=== PATIENT | male | born 1950 | race Caucasian/White ===

== ENCOUNTER 2016-10-21 10:34 | Observation (INO) | payer OTHER, MEDICARE ==
[2016-10-21 10:39] VITALS: RESP 16
--- NOTE | 2016-10-21 10:57 | CPEKG ---
Heart Rate: 60 RR Interval: 1000 P-R Interval: 160 QRSD Interval: 112 QT Interval: 412 QTC Interval: 412 P [place]: -1 QRS [place]: -41 T Wave [place]: 148 EKG Severity - ABNORMAL ECG - EKG Impression: SINUS RHYTHM EKG Impression: VENTRICULAR PREMATURE COMPLEX EKG Impression: NONSPECIFIC IVCD WITH LAD EKG Impression: PROBABLE POSTERIOR INFARCT Electronically Signed By: Aniceto Olivares 21-Oct-2016 11:24:21
--- NOTE | 2016-10-21 11:23 | EDPHY ---
H & P Stated Complaint: CP on and off for 1 month. Told to come in by Cards. Time Seen by Provider: 10/21/16 11:02 HPI/ROS: CHIEF COMPLAINT: Chest pain HISTORY OF PRESENT ILLNESS: The patient is a 66-year-old man who comes to the emergency department complaining of chest pain. He has had intermittent chest pain since July. At that time he had [address] Mcallister. He is daily angina that is improved significantly with Ranexa. He also has history of reflux disease and is seen by Dr. Ybarra. 5 days ago the Ranexa who was discontinued and he was started on ibuprofen a thought that maybe his chronic intermittent chest pain was for musculoskeletal. This seemed to worsen his symptoms significantly and he switched back to Ranexa yesterday. He also tried taking several doses of Gaviscon this morning without significant relief. For last 2 nights he has had severe chest pain around 3:00 a.m. that woke him from sleep. Yesterday it resolved but this morning it did not until he arrived here. No nausea vomiting. No diaphoresis. No shortness of breath. He did take his Plavix this morning and is complaining to take it again today at noon. REVIEW OF SYSTEMS: Constitutional: denies: chills, fever, recent illness, recent injury EENTM: denies: blurred vision, double vision, nose congestion Respiratory: denies: cough, shortness of breath Cardiac: See HPI Gastrointestinal/Abdominal: denies: abdominal pain, diarrhea, nausea, vomiting, blood streaked stools Genitourinary: denies: dysuria, frequency, hematuria, pain Musculoskeletal: denies: joint pain, muscle pain Skin: denies: lesions, rash, jaundice, bruising Neurological: denies: headache, numbness, paresthesia, tingling, dizziness, weakness Hematologic/Lymphatic: denies: blood clots, easy bleeding, easy bruising Immunologic/allergic: denies: HIV/AIDS, transplant EXAM: GENERAL: Well-appearing, well-nourished and in no acute distress. HEAD: Atraumatic, normocephalic. EYES: Pupils equal round and reactive to light, extraocular movements intact, sclera anicteric, conjunctiva are normal. ENT: TMs normal, nares patent, oropharynx clear without exudates. Moist mucous membranes. NECK: Normal range of motion, supple without lymphadenopathy or JVD. LUNGS: Breath sounds clear to auscultation bilaterally and equal. No wheezes rales or rhonchi. HEART: Regular rate and rhythm without murmurs, rubs or gallops. ABDOMEN: Soft, nontender, normoactive bowel sounds. No guarding, no rebound. No masses appreciated. BACK: No CVA tenderness, no spinal tenderness, step-offs or deformities EXTREMITIES: Normal range of motion, no pitting or edema. No clubbing or cyanosis. NEUROLOGICAL: Cranial nerves II through XII grossly intact. Normal speech, normal gait. 5/5 strength, normal movement in all extremities, normal sensation PSYCH: Normal mood, normal affect. SKIN: Warm, dry, normal turgor, no visible rashes or lesions. Source: Patient Exam Limitations: No limitations - Personal History Current Tetanus Diphtheria and Acellular Pertussis (TDAP): Yes Tetanus Vaccine Date: 2 years ago - Medical/Surgical History Hx Asthma: No Hx Chronic Respiratory Disease: No Hx Diabetes: No Hx Cardiac Disease: Yes Hx Renal Disease: No Hx Cirrhosis: No Hx Alcoholism: No Hx HIV/AIDS: No Hx Splenectomy or Spleen Trauma: No Other PMH: HTN, gout, Stents in heart. - Family History Significant Family History: Hypertension - Social History Smoking Status: Former smoker Alcohol Use: None Drug Use: None Constitutional: Initial Vital Signs Temperature (C) 36.6 C 10/21/16 10:35 Heart Rate 68 10/21/16 10:35 Respiratory Rate 16 10/21/16 10:35 Blood Pressure 144/85 H 10/21/16 10:35 O2 Sat (%) 93 10/21/16 10:35 O2 Delivery Mode Room Air Allergies/Adverse Reactions: amoxicillin trihydrate [From Augmentin] Allergy (Intermediate, Verified 17:12) cephalexin [Cephalexin] Allergy (Intermediate, Verified 08/12/16 17:12) clarithromycin [From Biaxin] Allergy (Intermediate, Verified 08/12/16 17:12) potassium clavulanate [From Augmentin] Allergy (Intermediate, Verified 08/12/16 17:12) Sulfa (Sulfonamide Antibiotics) Allergy (Intermediate, Verified 08/12/16 17:12) Hives lactose Allergy (Verified 08/12/16 17:12) Home Medications: Medication Instructions Recorded Allopurinol [Allopurinol 100 MG 100 mg PO DAILY 01/12/14 (*)] Aspirin EC [Aspirin EC 81 mg (*)] 81 mg PO DAILY 01/12/14 Cyanocobalamin [Vitamin B12 (*)] 1,000 mcg PO DAILY 01/12/14 Pantoprazole Sodium [Protonix 40mg 40 mg PO BID 01/12/14 (*)] Ramipril [Altace 5mg (*)] 5 mg PO HS 01/12/14 Clopidogrel Bisulfate [Plavix (*)] 75 mg PO DAILY@1200 10/21/16 Metoprolol Succinate Xr [Toprol Xl 25 mg PO HS 10/21/16 25 mg (*)] Ranolazine [Ranexa] 500 mg PO 10/21/16 Rosuvastatin Calcium [Crestor] 10 mg PO HS 10/21/16 Medical Decision Making - Diagnostics EKG Interpretation: An EKG obtained and was read and documented in trace view. Please see trace view for full reading and report. Sinus rhythm, PVC, nonspecific QRS widening , unchanged from previous ED Course/Re-evaluation: 12:25 p.m. I discussed the case with Dr.Hollands MOR Toro who agreed with admission to the hospital service. 12:30 p.m. I discussed the case with Liliana who accepted for Dr NAYAN Ferris. I spoke with patient who agrees with this plan. Currently he is asymptomatic. Differential Diagnosis: Partial list of the Differential diagnosis considered include but were not limited to; angina, musculoskeletal pain, and although unlikely based on the history and physical exam, I also considered PE, dissection, pneumonia. I discussed these differential diagnoses and the plan with the patient as well as the usual and expected course. The patient understands that the diagnosis is provisional and that in medicine we are not always correct and that further workup is often warranted. Usual and customary warnings were given. All of the patient's questions were answered. The patient was instructed to return to the emergency department should the symptoms at all worsen or return, otherwise to followup with the physician as we discussed. - Data Points Laboratory Results: Laboratory Results 10/21/16 11:01 10/21/16 11:01 Medications Given: Discontinued Medications Allopurinol (Allopurinol) 100 mg PO DAILY [facility] Stop: 04/20/17 08:59 Last Admin: 10/22/16 13:48 Dose: 100 mg Aspirin Buffered (Aspirin Ec) 81 mg PO DAILY [facility] Stop: 04/20/17 08:59 Last Admin: 10/22/16 07:29 Dose: Not Given Aspirin Buffered (Aspirin Ec) 325 mg PO ONCALL ONE Stop: 10/22/16 06:01 Last Admin: 10/22/16 07:19 Dose: 325 mg Clopidogrel Bisulfate (Plavix) 75 mg PO DAILY@1200 [facility] Stop: 04/20/17 11:59 Last Admin: 10/22/16 13:48 Dose: 75 mg Diazepam (Valium) 5 mg PO ONCALL ONE Stop: 10/22/16 06:01 Last Admin: 10/22/16 07:19 Dose: 5 mg Diphenhydramine HCl (Benadryl) 25 mg PO ONCALL ONE Stop: 10/22/16 06:01 Last Admin: 10/22/16 07:19 Dose: 25 mg Famotidine (Pepcid) 20 mg PO ONCE ONE Stop: 10/22/16 08:01 Last Admin: 10/22/16 13:49 Dose: Not Given Metoprolol Succinate (Toprol Xl) 25 mg PO [facility] Stop: 04/19/17 20:59 Last Admin: 10/21/16 20:37 Dose: 25 mg Pantoprazole Sodium (Protonix) 40 mg PO BID [facility] Stop: 04/19/17 20:59 Last Admin: 10/22/16 07:30 Dose: Not Given Ramipril (Altace) 5 mg PO [facility] Stop: 04/19/17 20:59 Last Admin: 10/21/16 20:36 Dose: 5 mg Ranolazine (Ranexa) 500 mg PO 08,20 [facility] Stop: 04/19/17 19:59 Last Admin: 10/22/16 07:27 Dose: Not Given Rosuvastatin Calcium (Crestor) 10 mg PO HS [facility] Stop: 04/19/17 20:59 Last Admin: 10/21/16 20:36 Dose: 10 mg Vitamin B Complex (Vitamin B12) 1,000 mcg PO DAILY [facility] Stop: 04/20/17 08:59 Last Admin: 10/22/16 07:29 Dose: Not Given Departure - Departure Disposition: [facility] Acute Clinical Impression: Acute chest pain Condition: Good
[2016-10-21 11:24] LABS: % IMMATURE GRANULYOCYTES 0.2 % (0.0-1.1); ABSOLUTE IMMATURE GRANULOCYTES 0.01 10^3/uL (0.00-0.10); ADD DIFF? NO; ADD MORPH? NO; ADD SCAN? NO; ATYPICAL LYMPHOCYTE FLAG 10 (0-99); FRAGMENT RBC FLAG 0 (0-99); HEMATOCRIT 38.7 % (40.0-51.0); HEMOGLOBIN 13.2 g/dL (13.7-17.5); LEFT SHIFT FLG 0 (0-99); LIPEMIA HEMOLYSIS FLAG 90 (0-99); MEAN CELL HEMOGLOBIN 31.1 pg (27.9-34.1); MEAN CELL HEMOGLOBIN CONCENTR. 34.1 g/dL (32.4-36.7); MEAN CELL VOLUME 91.3 fL (81.5-99.8); MEAN PLATELET VOLUME 11.6 fL (8.7-11.7); PLATELET CLUMPS FLAG 0 (0-99); PLATELET COUNT 177 10^3/uL (150-400); RED BLOOD CELL COUNT 4.24 10^6/uL (4.40-6.38); RED CELL DISTRIBUTION WIDTH 12.8 % (11.5-15.2)
[2016-10-21 11:34] LABS: APTT 24.7 SEC (23.0-38.0); INR 1.13 (0.83-1.16); PROTIME(PATIENT) 14.4 SEC (12.0-15.0)
[2016-10-21 11:36] LABS: ANION GAP 11 mEq/L (8-16); CARBON DIOXIDE 25 mEq/l (22-31); CHLORIDE 107 mEq/L (97-110); GLOMERULAR FILTRATION RATE > 60; GLUCOSE 130 mg/dL (70-100); POTASSIUM 3.9 mEq/L (3.5-5.2); SODIUM 143 mEq/L (134-144)
--- NOTE | 2016-10-21 11:41 | DX ---
Chest, PA and Lateral History: Chest pain, history of 2 coronary stents Comparison: January 11, 2014 Findings: Lung findings are again mildly prominent. Lungs are clear, without infiltrate or consolidat ion. Heart size and pulmonary vascularity are normal. There is no adenopathy or mass lesion. There is no pleural effusion or pneumothorax. There is stable mild compressions of T7 and T8 associated with a prominent thoracic kyphosis. No new compressions have developed.. EKG leads overlie the chest. Impression: COPD. Nothing acute identified.
[2016-10-21 11:42] LABS: TROPONIN I < 0.012 ng/mL (0-0.034)
[2016-10-21] MEDS ORDERED: ONDANSETRON DISINTEGRATING 4 MG TAB PO PRN (12:42)
[2016-10-21] MEDS ORDERED: ACETAMINOPHEN 325 MG TAB PO PRN (12:42)
[2016-10-21] MEDS ORDERED: ONDANSETRON 4 MG/2 ML VIAL IVP PRN (12:42)
[2016-10-21 14:24] VITALS: TEMP 97.5
--- NOTE | 2016-10-21 14:55 | GHP ---
[f rep st] HISTORY AND PHYSICAL DATE OF ADMISSION: 10/21/2016 CHIEF COMPLAINT: Chest pain. HISTORY OF PRESENT ILLNESS: This is a 66-year-old male with history of coronary artery disease with recent stents placed in July [address] Mcallister, who reports having intermittent essentially chronic chest pain since his last procedure. The patient was seen in the clinic and started on Ranexa approximately a month ago, and the patient continues to have intermittent chest pain symptoms. Reports for the last 2 mornings prior to presentation, he has woken up both days at 3:50 in the morning with severe substernal chest pain and pressure that radiates up into the upper part of his chest. The intensity became so bad today he presented to the emergency department. He has been seen several times in the clinic with recommendations for various medication changes. Approximately a week ago he was told to stop the Ranexa and start some ibuprofen. When the chest pain recurred, he did restart the Ranexa and said he believes he had some pain improvement with it. The patient has been attending cardiac rehab for the last 12 weeks, without complication. He does report that he had some chest pain on his elliptical machine in the last 48 hours. Otherwise, no clear exertional or pleuritic symptoms. The patient denies any dyspnea at rest or with exertion. Denies lower extremity edema. Does report chronic reflux which he, at this point in time, is having a difficult time from his intermittent chest pain. Reports predictable reflux symptoms after taking his Plavix daily. It seems to be alleviated by taking food. Reports that he has a persistent dry cough in the evening time after he takes his ramipril, typically only 2 or 3 coughs, and then no recurrence during the day. It is not affecting his lifestyle. The patient denies any diarrhea. Has had some constipation with the Ranexa as well as some headaches, that seemed to have resolved weeks into initiating that medication. Denies any dysuria or hematuria. PAST MEDICAL HISTORY: 1. Coronary artery disease, most recently with stents placed on August 09, 2016. 2. History of a nonischemic cardiomyopathy. 3. History of nonsustained ventricular tachycardia with a negative EP study. 4. Hyperlipidemia, on statin therapy. 5. Hypertension. 6. Baseline bradycardia exacerbated by beta nicho use. 7. WAYNE. Uses evening CPAP. SOCIAL HISTORY: Negative for tobacco. Very rare alcohol. No illicit drugs or marijuana. FAMILY HISTORY: Father of lung cancer. He was a smoker. ADVANCED DIRECTIVES: The patient is full cor, full tube. His would be his medical decision maker. REVIEW OF SYSTEMS: A 10-point review of systems is negative, with the exception of that reported in the HPI. PHYSICAL EXAMINATION: VITAL SIGNS: Blood pressure 144/85, heart rate 68, respiratory rate 16, 93% on room air, 36.6. GENERAL: This is a very healthy- appearing middle-aged male in no acute distress. HEENT: Notable for moist mucous membranes. Eye exam is negative for any icterus. CARDIAC: The patient is regular rate and rhythm. PULMONARY: Good respiratory effort. Clear to auscultation bilaterally. GASTROINTESTINAL: Positive bowel sounds. The abdomen is soft, nontender to palpation. MUSCULOSKELETAL: Negative for any lower extremity edema. SKIN: Negative for any rashes. NEUROLOGIC: He is alert and oriented x3. PSYCHIATRIC: He is pleasant and cooperative on interview and examination. DATA: White count 4.4, hematocrit 38.7 which is near recent baseline, platelets of 177. INR of 1.13. Creatinine of 1.0, glucose of 130. Troponin less than 0.012. Chest x-ray, which I personally reviewed and interpreted, shows no acute infiltrates or edema. EKG shows sinus rhythm, leftward axis deviation, nonspecific ST-T flattening in V3 with ST depression in V4, V5 and V6. Compared to old, the ST depressions in the far lateral leads are more pronounced. ASSESSMENT AND PLAN: This is a 66-year-old male presenting with chest pain. 1. Acute chest pain. The patient is certainly very high risk with known baseline coronary artery disease and recent stenting. Initial troponin is negative. EKG is not normal. The patient will be admitted for telemetry, serial troponins and EKGs, and Dr. Mcallister will consult. I expect the patient will be taken back to the cardiac catheterization lab either this evening or in the morning. Will keep the patient n.p.o. in preparation. 2. Coronary artery disease. Will continue the patient's medications, which include Plavix, beta nicho, REINA inhibitor and a statin. 3. Nonischemic cardiomyopathy. The patient does not appear to be in decompensated heart failure. 4. Gastroesophageal reflux disease. The patient has persistent symptoms. Will continue his outpatient twice daily pantoprazole. 5. Prophylaxis. Will hold on Lovenox as the patient is likely going to the laborer drying department this evening. DIET: N.p.o. in preparation for the lab. DISPOSITION: I expect less than 2 midnights in a patient if the cardiac catheterization is normal. I have discussed the case with Cardiology. They will evaluate the patient and make a decision on when to go to the cardiac laborer drying department. /[id number]/MODL MTDD
[2016-10-21] MEDS: RANOLAZINE 500 MG TAB.ER PO SCH (20:37)
[2016-10-21] MEDS ORDERED: METOPROLOL SUCCINATE XR 25 MG TAB PO SCH (21:00)
[2016-10-21] MEDS ORDERED: RAMIPRIL 5 MG CAP PO SCH (21:00)
[2016-10-21] MEDS ORDERED: ROSUVASTATIN CALCIUM 10 MG TAB PO SCH (21:00)
[2016-10-21] MEDS: PANTOPRAZOLE SODIUM 40 MG TAB PO SCH (21:20)
--- NOTE | 2016-10-21 21:34 | SOAPPROG ---
[facility] Progress Note Assessment/Plan: Assessment: Plan: cath in am 10/21/16 21:33 Objective: Vital Signs Temp Pulse Resp BP Pulse Ox 97.5 F 64 16 128/91 H 92 10/21/16 14:23 10/21/16 20:37 10/21/16 14:23 10/21/16 20:37 10/21/16 14:23 PT 14.4 SEC (12.0-15.0) 10/21/16 11:01 INR 1.13 (0.83-1.16) 10/21/16 11:01 ICD10 Worksheet Patient Problems: Problems Problem Status Diagnosed Acute chest pain Acute
[2016-10-21] MEDS ORDERED: TEMAZEPAM 15 MG CAP PO PRN (21:38)
[2016-10-22 05:52] LABS: ADD DIFF? NO; ADD MORPH? NO; ADD SCAN? NO; ATYPICAL LYMPHOCYTE FLAG 20 (0-99); FRAGMENT RBC FLAG 0 (0-99); HEMATOCRIT 37.9 % (40.0-51.0); HEMOGLOBIN 12.7 g/dL (13.7-17.5); LEFT SHIFT FLG 0 (0-99); LIPEMIA HEMOLYSIS FLAG 80 (0-99); MEAN CELL HEMOGLOBIN 31.1 pg (27.9-34.1); MEAN CELL HEMOGLOBIN CONCENTR. 33.5 g/dL (32.4-36.7); MEAN CELL VOLUME 92.9 fL (81.5-99.8); MEAN PLATELET VOLUME 11.3 fL (8.7-11.7); PLATELET CLUMPS FLAG 0 (0-99); PLATELET COUNT 157 10^3/uL (150-400); RED BLOOD CELL COUNT 4.08 10^6/uL (4.40-6.38); RED CELL DISTRIBUTION WIDTH 12.8 % (11.5-15.2)
[2016-10-22] MEDS ORDERED: diphenhydrAMINE 25 MG CAP PO ONE (06:00)
[2016-10-22] MEDS ORDERED: ASPIRIN EC 325 MG TAB PO ONE (06:00)
[2016-10-22] MEDS ORDERED: DIAZEPAM 5 MG TAB PO ONE (06:00)
[2016-10-22 06:25] LABS: APTT 26.3 SEC (23.0-38.0); INR 1.17 (0.83-1.16); PROTIME(PATIENT) 14.9 SEC (12.0-15.0)
[2016-10-22 06:26] LABS: ANION GAP 10 mEq/L (8-16); CALCIUM 8.6 mg/dL (8.5-10.4); CARBON DIOXIDE 26 mEq/l (22-31); CHLORIDE 107 mEq/L (97-110); CHOLESTEROL 104 mg/dL (140-220); CHOLESTEROL/HDL RATIO 3.15 RATIO (1.00-4.97); CREATININE 0.9 mg/dL (0.7-1.3); GLOMERULAR FILTRATION RATE > 60; GLUCOSE 88 mg/dL (70-100); HIGH DENSITY LIPOPROTEIN 33 mg/dL (40-65); LDL/HDL RATIO 1.67 RATIO (1.00-3.64); LOW DENSITY LIPOPROTEIN 55 mg/dL (80-100); NON-HIGH DENSITY LIPOPROTEIN 71 mg/dL (90-129); POTASSIUM 4.4 mEq/L (3.5-5.2); SODIUM 143 mEq/L (134-144); TRIGLYCERIDE 82 mg/dL (40-150); VERY LOW DENSITY LIPOPROTEINS 16 mg/dL (8-25)
[2016-10-22 06:30] LABS: TROPONIN I < 0.012 ng/mL (0-0.034)
[2016-10-22] MEDS: RANOLAZINE 500 MG TAB.ER PO SCH (07:27)
[2016-10-22] MEDS: ALLOPURINOL 100 MG TAB PO SCH ×2 (07:28→13:48)
[2016-10-22] MEDS ORDERED: FAMOTIDINE 20 MG TAB ONE (07:30)
[2016-10-22] MEDS: PANTOPRAZOLE SODIUM 40 MG TAB PO SCH (07:30)
[2016-10-22] MEDS ORDERED: FAMOTIDINE 20 MG TAB PO ONE (08:00)
[2016-10-22] MEDS ORDERED: LIDOCAINE 1% 30 ML SDV ONE (08:00)
[2016-10-22] MEDS ORDERED: MIDAZOLAM 2 MG/2 ML VIAL ONE ×2 (08:01→09:23)
[2016-10-22] MEDS ORDERED: fentaNYL 100 MCG/2 ML INJ ONE (08:01)
[2016-10-22] MEDS ORDERED: HEPARIN 10,000 UNIT/10 ML MDV ONE (08:01)
[2016-10-22] MEDS ORDERED: VERAPAMIL 5 MG/2 ML VIAL ONE ×2 (08:01→09:23)
[2016-10-22] MEDS ORDERED: IOPAMIDOL (ISOVUE-370) 150 ML BTL IV ONE (08:02)
--- NOTE | 2016-10-22 08:43 | SUROPNOTE ---
[facility] Operative Report - Surgery Date of Procedure: 10/22/16 Indication: This patient is a 66 year old man, with known coronary disease status-post proximal and mid LAD stenting 08/09/16, presenting with intermittent episodes of chest pain, which has been occurring since stenting in July 2016. He started a Ranexa regimen approximately one month ago, with little alleviation. He also tried ibuprofen unsuccessfully. In the last 2-3 days , this pain has become particularly severe; localized substernally and radiating to the upper part of his chest, occurring at rest and waking him from sleep. He had a very severe episode yesterday morning, which precipitated him presenting to the emergency department for medical attention. He was subsequently admitted for evaluation. Serial troponins have been negative, however the patient continues to experience resting chest pain. Left heart catheterization is indicated secondary to atypical class IV chest pain and [place] Cardiovascular class III angina despite medical therapy. Procedures performed: 1. Left heart catheterization with left ventricular and selective coronary angiography. Description of procedure: Description, risks, benefits and alternatives were discussed in detail. Informed consent was obtained. The patient was brought to the catheterization laboratory where a timeout was performed. The patient's standard Obdulio's test was abnormal, however after prolonged compression of the radial artery, ulnar pulse was ultimately palpable and was present by Doppler. Therefore, I felt it was safe to utilize radial access. The right wrist was sterilely prepped and draped. 2% lidocaine utilized for local anesthetic. A 5-Telugu hemostatic sheath placed right radial artery utilizing micropuncture technique. Diagnostic coronary angiography performed with 5-Telugu, Cm left-3.5 and Cm right -4 catheter. All catheters were passed over a 0.035 guidewire and J Glidewire. Pigtail catheter was then utilized for left heart catheterization and left ventricular angiography. Arterial sheath was removed and TR band was placed. Findings: 1. Hemodynamics: Aortic pressure 109/62, mean of 82, left ventricular pressure 114/4/9 end-diastolic. There was no pull back gradient across the aortic valve. 2. Left ventricle: The left ventricle appears normal in size. Left ventricle is normal shape. There is global hypokinesis with an ejection fraction of 35%. There are no filling defects or significant mitral regurgitation. The aortic root and ascending aorta appears normal, there is no dissection or aneurysm formation. 3. Coronary angiography: Left main: The left main is large, trifurcating vessel with very minimal disease. 4. Left anterior descending: This is a large vessel with proximal ectasia. Previously placed proximal and mid stents are widely patent. 5. Circumflex: The circumflex gives rise to a large high-lateral branch, moderate first obtuse marginal branch, and a large posterolateral branch. There is diffuse atherosclerotic disease without no stenosis greater than 40%. 6. Ramus intermedius: This is a large vessel covering the diagonal territory with diffuse irregularities and no stenosis greater than 20%. 6. Right coronary: Large dominant vessel with fairly severe proximal ectasia and dye streaming. Gives rise to a small PDA and moderate posterolateral branch. Diffuse nonobstructive atherosclerosis. Overall Impression: 1. Diffuse atherosclerotic coronary artery disease, with rather severe ectatic changes particularly in the proximal right coronary artery, without significant progression from previous catheterization 07/2016. Proximal and mid LAD stents are widely patent. 2. Reduced left ventricular systolic function with EF of 35%. 3. Non-ischemic cardiomyopathy. Plan: 1. Full inflammatory workup, including JOSY and vasculitis workup. 2. Continue dual anti-platelet therapy. 3. Aggressive risk modification and high dose statin therapy. 4. Continue Ranexa. 5. MUGA scan. 6. Close clinical follow up. Portions of this report were documented by a medical videographer. I have reviewed this report and agree with the documentation. Report scribed for Dr. Deep Mcallister. Report scribed by Rosana Wolf.
[2016-10-22] MEDS ORDERED: ASPIRIN EC 81 MG TAB PO SCH (09:00)
[2016-10-22] MEDS ORDERED: CYANO/VITAMIN B12 1000 MCG TAB PO SCH (09:00)
[2016-10-22] MEDS ORDERED: NITROGLYCERIN 1,500 MCG/15 ML VIAL MISC ONE (09:23)
[2016-10-22] MEDS ORDERED: HYDROCODONE/APAP 5/325 TAB PO PRN (10:00)
[2016-10-22] MEDS ORDERED: ATROPINE SULFATE 1 MG/10 ML SYR IVP PRN (10:00)
[2016-10-22] MEDS ORDERED: OXYCODONE/APAP 5/325 TAB PO PRN (10:00)
[2016-10-22] MEDS ORDERED: ONDANSETRON 4 MG/2 ML VIAL IVP PRN (10:00)
[2016-10-22] MEDS ORDERED: NITROGLYCERIN 0.4 MG BTL SL PRN (10:00)
[2016-10-22] MEDS ORDERED: CLOPIDOGREL BISULFATE 75 MG TAB PO SCH (12:00)
[2016-10-22 13:46] VITALS: BP 90/56; PULSE 60; O2SAT 97
--- NOTE | 2016-10-22 17:31 | GDS ---
[f rep st] DISCHARGE SUMMARY DISCHARGE DIAGNOSES: 1. Chest pain, resolved. 2. Coronary artery disease, status post stenting in July 2016. 3. Nonischemic cardiomyopathy. 4. Nonsustained ventricular tachycardia with a negative electrophysiologic study. 5. Hyperlipidemia. 6. Hypertension. CONSULTANTS: Deep Mcallister MD, cardiology. PROCEDURES PERFORMED: Left heart catheterization performed on October 22, 2016, by Dr. Deep Hernandez nd, revealed diffuse coronary artery disease with a rather severe changes in the proximal right coron [place], though no significant progression from his previous catheterization in July 2016. His proxi mal and mid LAD stents were widely patent. His ejection fraction was noted to be 35%. HISTORY: For details, please see dictated history and physical by Dr. Sepideh Ferris dated 10/21/2016 . In brief, the patient is a 66-year-old male with a history of known coronary disease and prior lia nts. He is followed by Dr. Mcallister in the outpatient setting. [facility] and is admitted for further evaluation. HOSPITAL COURSE: The patient was in the observation unit. Initial troponin was negative, though he did have an abnormal EKG. He was made n.p.o., and taken to the geophysical laboratory chief the following morning. Resu lts are discussed above. No further interventions were performed, given his widely patent stents. Jj colón is continued on dual antiplatelet therapy, along with statin and Ranexa. PLAN: Is to follow up with Dr. Mcallister for an outpatient MUGA scan for more specific information abo ut the ejection fraction. He will discuss Dr. Mcallister changing from Ranexa to possible nitrate thera py, as he does not feel the Ranexa is beneficial. DISPOSITION: Patient is discharged home in stable condition. FOLLOWUP: Follow up with Dr. Mcallister in the outpatient clinic within the next week. DISCHARGE MEDICATIONS: Please see [employer] for complete updated outpatient medication list. There a re no new medications on discharge. /[id number]/MODL
== END 2016-10-22 17:20 | disposition home or self-care (01) ==
LOC: F1N 14:11
PROVIDERS: ADMIT Hospitalist; ATTEND Hospitalist
PROC: 4A023N7 Measurement of Cardiac Sampling and Pressure, Left Heart, Percutaneous Approach (ICD-10-PCS; principal; 2016-10-21)
PROC: B2151ZZ Fluoroscopy of Left Heart using Low Osmolar Contrast (ICD-10-PCS; 2016-10-21)
PROC: B2111ZZ Fluoroscopy of Multiple Coronary Arteries using Low Osmolar Contrast (ICD-10-PCS; 2016-10-21)
DX: R07.9 Chest pain, unspecified (principal); I25.10 Atherosclerotic heart disease of native coronary artery without angina pectoris; Z95.5 Presence of coronary angioplasty implant and graft; I42.9 Cardiomyopathy, unspecified; I47.2 Ventricular tachycardia; E78.4 Other hyperlipidemia; I10 Essential (primary) hypertension; K21.9 Gastro-esophageal reflux disease without esophagitis; R42 Dizziness and giddiness; G47.33 Obstructive sleep apnea (adult) (pediatric); R00.1 Bradycardia, unspecified; J44.9 Chronic obstructive pulmonary disease, unspecified; Z87.891 Personal history of nicotine dependence
CPT/HCPCS: 71020; 93005; 93458; 99285; C1769; G0378; J1644; J2250; J3010; Q9967

== ENCOUNTER 2016-12-26 20:17 | Inpatient (IN) | payer OTHER, MEDICARE ==
--- NOTE | 2016-12-26 20:40 | CPEKG ---
Heart Rate: 55 RR Interval: 1091 P-R Interval: 156 QRSD Interval: 118 QT Interval: 472 QTC Interval: [address]: [address]: [address]: 117 EKG Severity - ABNORMAL ECG - EKG Impression: SINUS RHYTHM EKG Impression: INCOMPLETE RIGHT BUNDLE BRANCH BLOCK EKG Impression: LVH WITH SECONDARY REPOLARIZATION ABNORMALITY EKG Impression: Similar to previous Electronically Signed By: Aniceto Olivares 26-Dec-2016 21:26:49
[2016-12-26] MEDS ORDERED: NS 500 ML IV ONE (21:09)
--- NOTE | 2016-12-26 21:14 | EDPHY ---
H & P Stated Complaint: CP, palpitations Time Seen by Provider: 12/26/16 20:44 HPI/ROS: CHIEF COMPLAINT: Chest palpitations and lightheadedness HISTORY OF PRESENT ILLNESS: The patient is a 66-year-old man who comes to the emergency department complaining of palpitations and lightheadedness. This is happened to him 4 times this week. He has a history of coronary artery disease status post stenting of his LAD in July of last year. His 2nd catheterization in October of this year that showed diffuse coronary artery disease but no new lesions requiring stenting. He also has a history of nonsustained ventricular tachycardia status post negative EP study. He denies recent fevers or illness. He states that on Wednesday was mowing the lawn and picking up branches when he suddenly felt palpitations and the lightheaded. he had to stop for an hour when he felt better. Then on he was seen in the cardiac rehab unit. While on the treadmill he again had palpitations and lightheadedness. He had stopped for 45 minutes. I his EKGs were sent to his hypnotherapist Dr. Wheeler who reviewed them. He was like to go home. Today he was again doing yd work and felt palpitations lightheadedness. It resolved after about an hour. Again after eating dinner tonight he had the same symptoms. He called the hypnotherapist's office who recommended he come here to be evaluated. He has an ejection fraction of 35%. he denies nausea, diaphoresis or shortness of breath. He denies recent febrile illness REVIEW OF SYSTEMS: Constitutional: denies: chills, fever, recent illness, recent injury EENTM: denies: blurred vision, double vision, nose congestion Respiratory: denies: cough, shortness of breath Cardiac: See HPI Gastrointestinal/Abdominal: denies: abdominal pain, diarrhea, nausea, vomiting, blood streaked stools Genitourinary: denies: dysuria, frequency, hematuria, pain Musculoskeletal: denies: joint pain, muscle pain Skin: denies: lesions, rash, jaundice, bruising Neurological: denies: headache, numbness, paresthesia, tingling, dizziness, weakness Hematologic/Lymphatic: denies: blood clots, easy bleeding, easy bruising Immunologic/allergic: denies: HIV/AIDS, transplant EXAM: GENERAL: Well-appearing, well-nourished and in no acute distress. HEAD: Atraumatic, normocephalic. EYES: Pupils equal round and reactive to light, extraocular movements intact, sclera anicteric, conjunctiva are normal. ENT: TMs normal, nares patent, oropharynx clear without exudates. Moist mucous membranes. NECK: Normal range of motion, supple without lymphadenopathy or JVD. LUNGS: Breath sounds clear to auscultation bilaterally and equal. No wheezes rales or rhonchi. HEART: Regular rate and rhythm without murmurs, rubs or gallops. ABDOMEN: Soft, nontender, normoactive bowel sounds. No guarding, no rebound. No masses appreciated. BACK: No CVA tenderness, no spinal tenderness, step-offs or deformities EXTREMITIES: Normal range of motion, no pitting or edema. No clubbing or cyanosis. NEUROLOGICAL: Cranial nerves II through XII grossly intact. Normal speech, normal gait. 5/5 strength, normal movement in all extremities, normal sensation PSYCH: Normal mood, normal affect. SKIN: Warm, dry, normal turgor, no visible rashes or lesions. Source: Patient Exam Limitations: No limitations - Personal History Current Tetanus/Diphtheria Vaccine: Yes Current Tetanus Diphtheria and Acellular Pertussis (TDAP): Yes Tetanus Vaccine Date: 2 years ago - Medical/Surgical History Hx Asthma: No Hx Chronic Respiratory Disease: No Hx Diabetes: No Hx Cardiac Disease: Yes Hx Renal Disease: No Hx Cirrhosis: No Hx Alcoholism: No Hx HIV/AIDS: No Hx Splenectomy or Spleen Trauma: No Other PMH: HTN, gout, Stents in heart. - Family History Significant Family History: No pertinent family hx - Social History Smoking Status: Former smoker Alcohol Use: Sober Drug Use: None Constitutional: Initial Vital Signs Temperature (C) 36.8 C 12/26/16 20:20 Heart Rate 70 12/26/16 20:20 Respiratory Rate 16 12/26/16 20:20 Blood Pressure 148/88 H 12/26/16 20:20 O2 Sat (%) 94 12/26/16 20:20 O2 Delivery Mode Room Air Allergies/Adverse Reactions: amoxicillin trihydrate [From Augmentin] Allergy (Intermediate, Verified 17:12) cephalexin [Cephalexin] Allergy (Intermediate, Verified 08/12/16 17:12) clarithromycin [From Biaxin] Allergy (Intermediate, Verified 08/12/16 17:12) potassium clavulanate [From Augmentin] Allergy (Intermediate, Verified 08/12/16 17:12) Sulfa (Sulfonamide Antibiotics) Allergy (Intermediate, Verified 08/12/16 17:12) Hives lactose Allergy (Verified 08/12/16 17:12) Home Medications: Medication Instructions Recorded Allopurinol [Allopurinol 100 MG 50 mg PO DAILY 01/12/14 (*)] Aspirin EC [Aspirin EC 81 mg (*)] 81 mg PO DAILY 01/12/14 Cyanocobalamin [Vitamin B12 (*)] 1,000 mcg PO DAILY 01/12/14 Pantoprazole Sodium [Protonix 40mg 40 mg PO BIDMEAL 01/12/14 (*)] Ramipril [Altace 5mg (*)] 5 mg PO HS 01/12/14 Clopidogrel Bisulfate [Plavix (*)] 75 mg PO DAILY@18 10/21/16 Metoprolol Succinate Xr [Toprol Xl 25 mg PO HS 10/21/16 25 mg (*)] Rosuvastatin Calcium [Crestor] 10 mg PO HS 10/21/16 Medical Decision Making - Diagnostics EKG Interpretation: An EKG obtained and was read and documented in trace view. Please see trace view for full reading and report. Sinus rhythm, right bundle branch block, LVH with repolarization abnormality, similar to previous Imaging Results: Images reviewed by me ED Course/Re-evaluation: we discussed the patient's imaging and lab results and EKG which are reassuring however his symptoms are very concerning. He is having exertional pre syncope and palpitations and chest pain. He has a significant cardiac history. He had episodes of nonsustained ventricular tachycardia during a stress test 5 years ago. Then he was investigated by Dr. Brady but they are unable to reproduce his arrhythmia. He is concerned that he may be on too much metoprolol. He states that since he was increased from 12.5 mg to 25 mg he has had low blood pressure and more of these symptoms. I will admit to the hospitalist service. I have paged Cardiology as well. 10:00 p.m. I discussed the case with Dr. Velasco who will admit to the medical service. 10:02 p.m. I spoke with Dr. Benji Ribeiro who agrees admit the admission and rule out and recommends a nuclear Cardiolite stress test in the morning. Differential Diagnosis: Partial list of the Differential diagnosis considered include but were not limited to; pre syncope, palpitations, acute coronary disease, arrhythmia and although unlikely based on the history and physical exam, I also considered PE, CHF, pneumothorax. Critical Care Time: Critical care time spent by me, Dr. Olivares exclusive with this patient was 35 minutes, exclusive of the PA time exclusive of procedures. The organ system that was at risk was cardiac and I gave monitoring, fluids, consultation and admission for further workup to prevent worsening of the patient's condition - Data Points Laboratory Results: Laboratory Results 12/27/16 03:21 12/27/16 03:21 Medications Given: Discontinued Medications Allopurinol (Allopurinol) 50 mg PO DAILY [facility] Stop: 06/25/17 11:59 Last Admin: 12/28/16 07:42 Dose: 50 mg Aspirin Buffered (Aspirin Ec) 81 mg PO DAILY [facility] Stop: 06/25/17 11:59 Last Admin: 12/28/16 07:42 Dose: 81 mg Clopidogrel Bisulfate (Plavix) 75 mg PO DAILY@18 [facility] Stop: 06/25/17 17:59 Last Admin: 12/27/16 16:22 Dose: 75 mg Sodium Chloride (Ns) 500 mls @ 0 mls/hr IV ONCE ONE PRN Reason: As Directed Stop: 12/26/16 21:10 Last Admin: 12/26/16 21:39 Dose: 500 mls Metoprolol Succinate (Toprol Xl) 25 mg PO HS [facility] Stop: 06/25/17 20:59 Last Admin: 12/27/16 21:22 Dose: 25 mg Pantoprazole Sodium (Protonix) 40 mg PO BIDMEAL [facility] Stop: 06/25/17 17:59 Last Admin: 12/28/16 07:31 Dose: 40 mg Ramipril (Altace) 5 mg PO HS [facility] Stop: 06/25/17 20:59 Last Admin: 12/27/16 21:22 Dose: 5 mg Rosuvastatin Calcium (Crestor) 10 mg PO ONCE ONE Stop: 12/26/16 23:04 Last Admin: 12/26/16 23:35 Dose: 10 mg Rosuvastatin Calcium (Crestor) 10 mg PO HS [facility] Stop: 06/25/17 20:59 Last Admin: 12/27/16 21:22 Dose: 10 mg Departure - Departure Disposition: [facility] Inpatient Acute Clinical Impression: Pre-syncope Condition: Good
[2016-12-26 21:25] LABS: INR 1.12 (0.83-1.16); PROTIME(PATIENT) 14.3 SEC (12.0-15.0)
[2016-12-26 21:26] LABS: % IMMATURE GRANULYOCYTES 0.2 % (0.0-1.1); ABSOLUTE IMMATURE GRANULOCYTES 0.01 10^3/uL (0.00-0.10); ADD DIFF? NO; ADD MORPH? NO; ADD SCAN? NO; ATYPICAL LYMPHOCYTE FLAG 20 (0-99); FRAGMENT RBC FLAG 0 (0-99); HEMATOCRIT 37.7 % (40.0-51.0); HEMOGLOBIN 12.3 g/dL (13.7-17.5); LEFT SHIFT FLG 0 (0-99); LIPEMIA HEMOLYSIS FLAG 80 (0-99); MEAN CELL HEMOGLOBIN 29.1 pg (27.9-34.1); MEAN CELL HEMOGLOBIN CONCENTR. 32.6 g/dL (32.4-36.7); MEAN CELL VOLUME 89.1 fL (81.5-99.8); MEAN PLATELET VOLUME 12.5 fL (8.7-11.7); PLATELET CLUMPS FLAG 20 (0-99); PLATELET COUNT 194 10^3/uL (150-400); RED BLOOD CELL COUNT 4.23 10^6/uL (4.40-6.38); RED CELL DISTRIBUTION WIDTH 13.2 % (11.5-15.2)
[2016-12-26 21:29] LABS: ANION GAP 12 mEq/L (8-16); CALCIUM 9.1 mg/dL (8.5-10.4); CARBON DIOXIDE 23 mEq/l (22-31); CHLORIDE 106 mEq/L (97-110); GLOMERULAR FILTRATION RATE > 60; GLUCOSE 99 mg/dL (70-100); POTASSIUM 3.8 mEq/L (3.5-5.2); SODIUM 141 mEq/L (134-144)
[2016-12-26 21:40] LABS: TROPONIN I < 0.012 ng/mL (0-0.034)
[2016-12-26 21:43] LABS: APTT 26.8 SEC (23.0-38.0)
[2016-12-26] MEDS ORDERED: ONDANSETRON DISINTEGRATING 4 MG TAB PO PRN (23:00)
[2016-12-26] MEDS ORDERED: ONDANSETRON 4 MG/2 ML VIAL IVP PRN (23:00)
[2016-12-26] MEDS ORDERED: ACETAMINOPHEN 325 MG TAB PO PRN (23:00)
[2016-12-26] MEDS ORDERED: ROSUVASTATIN CALCIUM 10 MG TAB PO ONE (23:03)
[2016-12-26 23:10] LABS: COLOR PALE YELLOW; LEUKOCYTE ESTERASE,URINE NEGATIVE (NEGATIVE); NITRITE,URINE NEGATIVE (NEGATIVE)
--- NOTE | 2016-12-26 23:44 | PDGENHP ---
History and Physical - Chief Complaint chest pain, palpitations - History of Present Illness patient is a 66-year-old male with history of CAD (PCI in 07/2016), chronic systolic heart failure ( EF 35% ) and GERD who presents to the ED with complaint palpitations and chest discomfort. He describes 3 distinct episodes the 1st occurring while he was doing yard work on 12/23. 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 This lasted for minutes, a resolved with rest. The following day he was at his cardiac rehab session on the stationary bike when he again felt palpitations and chest discomfort. He was on the auto design checker during this time, he is unsure it revealed any abnormalities (states his memory care program resident' s office has the report from this), he was given a SL nitro and his symptoms resolved after minutes. Today, patient was again working in his yard when he felt chest discomfort, palpitations and dizziness. He called his memory care program resident's office with these symptoms and given the recurrent nature, was advised to come to the ED for further evaluation. Of note, patient had PCI in 07/2017 with 2 stents placed in his LAD. Following that, he has had a stress test as well as a cardiac cath in 10/2016. Cath revealed diffuse nonobstructive disease, patent LAD stenting, EF 35%. He has been compliant with cardiac rehab and had been asymptomatic until above mentioned symptoms. He does have a remote history of nonsustained vtach seen on holter monitoring about 3 years ago. He underwent EP study for further investigation of this and VT was unable to be reproduced, so no ablation or intervention was performed and he has not had symptoms of this since. On arrival to the ED patient was afebrile and hemodynamically stable. Labs revealed normal CBC, BMP and negative troponin. EKG showed normal sinus rhythm with lateral ST depressions, which is unchanged from prior. Cardiology was called by the ED, recommended admission and NM stress in AM. He was then admitted to the hospitalist service. History Information - Allergies/Home Medication List Allergies/Adverse Reactions: amoxicillin trihydrate [From Augmentin] Allergy (Intermediate, Verified 17:12) cephalexin [Cephalexin] Allergy (Intermediate, Verified 08/12/16 17:12) clarithromycin [From Biaxin] Allergy (Intermediate, Verified 08/12/16 17:12) potassium clavulanate [From Augmentin] Allergy (Intermediate, Verified 08/12/16 17:12) Sulfa (Sulfonamide Antibiotics) Allergy (Intermediate, Verified 08/12/16 17:12) Hives lactose Allergy (Verified 08/12/16 17:12) Home Medications: Allopurinol [Allopurinol 100 MG (*)] 100 mg PO DAILY 01/12/14 [Last Taken ] Aspirin EC [Aspirin EC 81 mg (*)] 81 mg PO DAILY 01/12/14 [Last Taken 10/21/16] Cyanocobalamin [Vitamin B12 (*)] 1,000 mcg PO DAILY 01/12/14 [Last Taken ] Pantoprazole Sodium [Protonix 40mg (*)] 40 mg PO BID 01/12/14 [Last Taken 08:00] Ramipril [Altace 5mg (*)] 5 mg PO HS 01/12/14 [Last Taken 10/20/16] Clopidogrel Bisulfate [Plavix (*)] 75 mg PO DAILY@1200 10/21/16 [Last Taken 04/29] Metoprolol Succinate Xr [Toprol Xl 25 mg (*)] 25 mg PO HS 10/21/16 [Last Taken 10/20/16] Ranolazine [Ranexa] 500 mg PO 10/21/16 [Last Taken 10/21/16 08:00] Rosuvastatin Calcium [Crestor] 10 mg PO HS 10/21/16 [Last Taken 10/20/16] I have personally reviewed and updated: family history, medical history, social history, surgical history - Past Medical History Additional medical history: CAD s/p PCI in 07/2017. systolic CHF, ef 35%. GERD - Surgical History Additional surgical history: R rotator cuff repair. Cholecystectomy. appendectomy. L hand surgery. umbilical hernia repair. TURP - Family History Additional family history: DM2, CAD (no early CAD) - Social History Smoking Status: Former smoker (chewing tobacco use, quit > 15 years ago) Alcohol Use: Sober Drug Use: None Additional social history: Retired, lives with . Review of Systems ROS: 10pt was reviewed & negative except for what was stated in HPI & below Physical Exam Temp Pulse Resp BP Pulse Ox 36.7 C 59 L 20 150/97 H 94 12/26/16 22:40 12/26/16 22:40 12/26/16 22:40 12/26/16 22:40 12/26/16 22:40 Constitutional: no apparent distress, appears nourished, not in pain Eyes: PERRL, anicteric sclera, EOMI Ears, Nose, Mouth, Throat: moist mucous membranes, hearing normal, ears appear normal, no oral mucosal ulcers Cardiovascular: regular rate and rhythym, no murmur, rub, or gallop, pulses symmetric bilaterally, No JVD, No edema Peripheral Pulses: 2+: dorsalis-pedis (R), dorsalis-pedis (L) Respiratory: no respiratory distress, no rales or rhonchi, clear to auscultation Gastrointestinal: normoactive bowel sounds, soft, non-tender abdomen, no palpable masses, No guarding, No rebound, No distension Genitourinary: no bladder fullness, no bladder tenderness Skin: warm, normal color, no rashes or abrasions, no fluctuance, no induration, No mottled Musculoskeletal: full muscle strength, no muscle tenderness, normal joint ROM, no joint effusions Neurologic: AAOx3, sensation intact bilaterally, CN II-XII Intact, No weakness, No numbness, No facial droop Psychiatric: interacting appropriately, not anxious, not encephalopathic, thought process linear Lab Data & Imaging Review 12/26/16 21:09 12/26/16 21:09 WBC 6.24 10^3/uL (3.80-9.50) 12/26/16 21:09 RBC 4.23 10^6/uL (4.40-6.38) L 12/26/16 21:09 Hgb 12.3 g/dL (13.7-17.5) L 12/26/16 21:09 Hct 37.7 % (40.0-51.0) L 12/26/16 21:09 MCV 89.1 fL (81.5-99.8) 12/26/16 21:09 MCH 29.1 pg (27.9-34.1) 12/26/16 21:09 MCHC 32.6 g/dL (32.4-36.7) 12/26/16 21:09 RDW 13.2 % (11.5-15.2) 12/26/16 21:09 Plt Count 194 10^3/uL (150-400) 12/26/16 21:09 MPV 12.5 fL (8.7-11.7) H 12/26/16 21:09 Neut % (Auto) 54.8 % (39.3-74.2) 12/26/16 21:09 Lymph % (Auto) 32.4 % (15.0-45.0) 12/26/16 21:09 [place] % (Auto) 10.7 % (4.5-13.0) 12/26/16 21:09 Eos % (Auto) 1.4 % (0.6-7.6) 12/26/16 21:09 Baso % (Auto) 0.5 % (0.3-1.7) 12/26/16 21:09 Nucleat RBC Rel Count 0.0 % (0.0-0.2) 12/26/16 21:09 Absolute Neuts (auto) 3.42 10^3/uL (1.70-6.50) 12/26/16 21:09 Absolute Lymphs (auto) 2.02 10^3/uL (1.00-3.00) 12/26/16 21:09 Absolute Monos (auto) 0.67 10^3/uL (0.30-0.80) 12/26/16 21:09 Absolute Eos (auto) 0.09 10^3/uL (0.03-0.40) 12/26/16 21:09 Absolute Basos (auto) 0.03 10^3/uL (0.02-0.10) 12/26/16 21:09 Absolute Nucleated RBC 0.00 10^3/uL (0-0.01) 12/26/16 21:09 Immature Gran % 0.2 % (0.0-1.1) 12/26/16 21: Immature Gran # 0.01 10^3/uL (0.00-0.10) 12/26/16 21:09 PT 14.3 SEC (12.0-15.0) 12/26/16 21:09 INR 1.12 (0.83-1.16) 12/26/16 21:09 APTT 26.8 SEC (23.0-38.0) 12/26/16 21:09 Sodium 141 mEq/L (134-144) 12/26/16 21:09 Potassium 3.8 mEq/L (3.5-5.2) 12/26/16 21:09 Chloride 106 mEq/L (97-110) 12/26/16 21:09 Carbon Dioxide 23 mEq/l (22-31) 12/26/16 21:09 Anion Gap 12 mEq/L (8-16) 12/26/16 21:09 BUN 11 mg/dL (7-23) 12/26/16 21:09 Creatinine 1.0 mg/dL (0.7-1.3) 12/26/16 21:09 Estimated GFR > 60 12/26/16 21:09 Glucose 99 mg/dL (70-100) 12/26/16 21:09 Calcium 9.1 mg/dL (8.5-10.4) 12/26/16 21:09 Troponin I < 0.012 ng/mL (0-0.034) 12/26/16 21:09 NT-Pro-B Natriuret Pep 347 pg/mL (0-125) H 12/26/16 21:09 Urine Color PALE YELLOW 12/26/16 22:00 Urine Appearance CLEAR 12/26/16 22:00 Urine pH 7.0 (5.0-7.5) 12/26/16 22:00 Ur Specific [place] 1.003 (1.002-1.030) 12/26/16 22:00 Urine Protein NEGATIVE (NEGATIVE) 12/26/16 22:00 Urine Ketones NEGATIVE (NEGATIVE) 12/26/16 22:00 Urine Blood NEGATIVE (NEGATIVE) 12/26/16 22:00 Urine Nitrate NEGATIVE (NEGATIVE) 12/26/16 22:00 Urine Bilirubin NEGATIVE (NEGATIVE) 12/26/16 22:00 Urine Urobilinogen NEGATIVE EU (0.2-1.0) 12/26/16 22:00 Ur Leukocyte Esterase NEGATIVE (NEGATIVE) 12/26/16 22:00 Urine Glucose NEGATIVE (NEGATIVE) 12/26/16 22:00 Visualized and Interpreted Chest x-ray results: Yes Chest X-Ray results: no infiltrate, normal Visualized and Interpreted EKG results: Yes EKG Interpretation: Positive for: normal sinsus rhythm (with lateral ST depressions, unchanged from prior ekgs) Assessment & Plan Assessment: Patient is a 66 year old male with CAD, CHF and GERD who presents to the ED with recurrent symptoms of chest pain, palpitations and dizziness with exertion x 4 days. ED evaluation reveals nonischemic ekg, negative troponin, but given patient's cardiac history he is being admitted for further evaluation. Pre-syncope (Acute) Plan: # chest pain, palpitations Etiology is concerning for ACS vs arrhythmia vs orthostatic hypotension. Initial EKG is unchanged from priors, troponin is negative and BNP is unremarkable. Cardiology was contacted by the ED and recommended repeat stress test in AM if cardiac enzymes remain negative. Will also monitor and replete electrolytes as needed. # chronic systolic CHF Patient appears euvolemic on presentation today, bnp is upper limit of normal. Will continue home meds. # GERD Stable, cont ppi. # dispo: admit to observation status # gen: NPO Full code
[2016-12-27] MEDS ORDERED: NITROGLYCERIN 0.4 MG BTL SL PRN (02:31)
[2016-12-27 04:23] LABS: % IMMATURE GRANULYOCYTES 0.2 % (0.0-1.1); ABSOLUTE IMMATURE GRANULOCYTES 0.01 10^3/uL (0.00-0.10); ADD DIFF? NO; ADD MORPH? NO; ADD SCAN? NO; ATYPICAL LYMPHOCYTE FLAG 10 (0-99); FRAGMENT RBC FLAG 0 (0-99); HEMATOCRIT 33.4 % (40.0-51.0); HEMOGLOBIN 10.8 g/dL (13.7-17.5); LEFT SHIFT FLG 0 (0-99); LIPEMIA HEMOLYSIS FLAG 80 (0-99); MEAN CELL HEMOGLOBIN 29.7 pg (27.9-34.1); MEAN CELL HEMOGLOBIN CONCENTR. 32.3 g/dL (32.4-36.7); MEAN CELL VOLUME 91.8 fL (81.5-99.8); MEAN PLATELET VOLUME 12.7 fL (8.7-11.7); PLATELET CLUMPS FLAG 10 (0-99); PLATELET COUNT 149 10^3/uL (150-400); RED BLOOD CELL COUNT 3.64 10^6/uL (4.40-6.38); RED CELL DISTRIBUTION WIDTH 13.4 % (11.5-15.2)
[2016-12-27 04:34] LABS: INR 1.21 (0.83-1.16); PROTIME(PATIENT) 15.3 SEC (12.0-15.0)
[2016-12-27 04:35] LABS: APTT 28.7 SEC (23.0-38.0)
[2016-12-27 04:42] LABS: ANION GAP 5 mEq/L (8-16); CALCIUM 8.4 mg/dL (8.5-10.4); CARBON DIOXIDE 27 mEq/l (22-31); CHLORIDE 109 mEq/L (97-110); CREATININE 0.9 mg/dL (0.7-1.3); GLOMERULAR FILTRATION RATE > 60; GLUCOSE 80 mg/dL (70-100); MAGNESIUM 1.9 mg/dL (1.6-2.3); POTASSIUM 4.2 mEq/L (3.5-5.2); SODIUM 141 mEq/L (134-144)
[2016-12-27 04:54] LABS: TROPONIN I < 0.012 ng/mL (0-0.034)
[2016-12-27 05:19] LABS: CREATINE KINASE-MB FRACTION 2.11 ng/mL (0-3.19)
--- NOTE | 2016-12-27 09:08 | GHP ---
[f rep st] HISTORY AND PHYSICAL DATE OF ADMISSION: 12/26/2016 CHIEF COMPLAINT: Lightheaded, dizzy. HISTORY OF PRESENT ILLNESS: This is a 66-year-old gentleman, who I have known from the past. He is currently, however, now being followed by Dr. Mcallister and Dr. Wheeler. He has known cardiomyopathy, i nitially nonischemic, however, he did have stents placed in 2015, he has ectatic vessels. He has be en at cardiac rehab out of [facility], and apparently doing well. He has had a few episodes of these pa lpitations and some lightheadedness. He does have a known history of nonsustained ventricular tachy cardia. In looking through the workup, he had his stents placed in 07/2016, and then once again had coronary angiography on 10/2016 that showed patent LAD stents, and otherwise ectatic vessels, and n o significant changes from 07/2016. He subsequently, by report had a MUGA, that showed his EF to be 42%. He has been working out at [facility] and not having problems, but he has had these lightheaded p alpitations, he thinks some is related to the increase of his metoprolol from 12.5 to 25 mg p.o. madhavi wilson He was concerned, came to the emergency room, where his enzymes and EKGs have been stable. His BNP was 346. He denies orthopnea or edema. He is very compliant with his meds. At this point, I had a long discussion with him, it sounds his concerns are more palpitations. We went through vario us options at this point, we will continue to monitor for the next [address] Wheeler can revisit and discuss whether or not he needs further outpatient testing with a 30 day monitor, heather astudillo has had that in the past with some nonsustained ventricular tachycardia. It is unclear whether this was symptomatic or not. In the hospital here, he has had no issues. He is slightly anemic to day, but he denies any active GI or blood loss. ALLERGIES: To amoxicillin, cephalexin, clarithromycin, sulfa and lactose. MEDICATIONS: His home medications include ramipril, clopidogrel, metoprolol, Ranexa, Crestor. PAST SURGICAL HISTORY: Rotator cuff repair, appendectomy. SOCIAL HISTORY: He has remote cigarette use,but nothing active. PHYSICAL EXAMINATION: VITAL SIGNS: Blood pressure is 119/75, his heart rate is in the 50s and sinu s rhythm. GENERAL: He is a middle-aged male, in no acute distress. He is alert and oriented, with out ongoing complaints. MOUTH: Oropharynx was moist. LUNGS: Clear. CARDIOVASCULAR: Regular rat e and rhythm without murmur, gallop, or rub. No JVP or HJR. ABDOMEN: Soft, nontender. MUSCULOSKE LETAL: Without cyanosis, clubbing, or edema. LABS: Hemoglobin is between 10 and 12, on 2 different tests. He has negative troponins. BNP 347. TSH 2.7. ASSESSMENT: Episodes of lightheadedness and more palpitations than angina situation, at least by hi s description. He has ruled out for myocardial infarction. He is not in significant heart failure. He has had a recent angiogram as of 2 months ago, showing nonocclusive coronary artery disease. Jj colón is being treated for small vessel disease. He is very active in cardiac rehab at [facility], and appa rently not having problems. He is now followed by Dr. Wheeler. Apparently had a 30 day monitor, and p er patient's report did not show any significant arrhythmias or correlation, as best as I can tell w ith his palpitations, and so far in the hospital he has had no significant issues. We discussed our options. At this point, he will remain in the hospital for 24 hours of monitoring. We will contac t Dr. Wheeler tomorrow, and he can do further testing as he deems necessary. At this point, no further cardiac testing is necessary, as he has recently had MUGA and cardiac catheterizations. No evidenc e of acute coronary syndrome, at least by enzyme testing, EKGs, and exam today. So fully discussed with him, he understands and further care depending on his course. /[id number]/MODL
--- NOTE | 2016-12-27 11:46 | HOSPPROG ---
Hospitalist Progress Note Assessment/Plan: Chest pain, lightheadedness, palpitations - H/O NSVT and CAD. S/P LAD stents x2 in 07/2016, had a recent cath in 10/2016 which showed non-obstructive dz and patent stents. Recent 30 day event monitor through Dr. Wheeler's office, pt mentions V tac noted. Discussed case with Dr. Bennett, Cardiology. No further cardiac testing recommended at this time. -cont monitoring on tele -Dr. Wheeler to consult tomorrow, will review recent event monitor at that time -cont ASA, Plavix, BB, statin Chronic systolic HF - appears compensated, cont current regimen GERD - cont PPI Full code Dispo - change to inpt, will stay for cardiac monitoring Subjective: Pt feels well. No CP or palpitations today. He is anxious, paces the room. His thinks his symptoms are a manifestation of anxiety. She may be correct. Objective: Vital Signs Temp Pulse Resp BP Pulse Ox 36.6 C 51 L 18 107/70 93 12/27/16 11:39 12/27/16 11:39 12/27/16 11:39 12/27/16 11:39 12/27/16 11:39 Laboratory Results 12/27/16 03:21 12/27/16 03:21 12/26/16 12/27/16 12/28/16 05:59 05:59 05:59 Intake Total 550 Balance 550 PT 15.3 SEC (12.0-15.0) H 12/27/16 03:21 INR 1.21 (0.83-1.16) H 12/27/16 03:21 - Physical Exam Constitutional: no apparent distress Eyes: PERRL Ears, Nose, Mouth, Throat: moist mucous membranes Cardiovascular: regular rate and rhythym Respiratory: no respiratory distress Gastrointestinal: normoactive bowel sounds, soft, non-tender abdomen Skin: warm Musculoskeletal: full muscle strength Neurologic: AAOx3 Psychiatric: interacting appropriately ICD10 Worksheet Patient Problems: Problems Problem Status Onset Pre-syncope Acute Acute chest pain Acute
[2016-12-27] MEDS: ASPIRIN EC 81 MG TAB PO SCH (12:39)
[2016-12-27] MEDS: ALLOPURINOL 100 MG TAB PO SCH (12:39)
[2016-12-27] MEDS: PANTOPRAZOLE SODIUM 40 MG TAB PO SCH (16:22)
[2016-12-27] MEDS ORDERED: CLOPIDOGREL BISULFATE 75 MG TAB PO SCH (18:00)
[2016-12-27] MEDS ORDERED: ROSUVASTATIN CALCIUM 10 MG TAB PO SCH (21:00)
[2016-12-27] MEDS ORDERED: RAMIPRIL 5 MG CAP PO SCH (21:00)
[2016-12-27] MEDS ORDERED: METOPROLOL SUCCINATE XR 25 MG TAB PO SCH (21:00)
[2016-12-28 07:22] VITALS: BP 124/68; PULSE 51; RESP 18; TEMP 97.6; O2SAT 94
[2016-12-28] MEDS: PANTOPRAZOLE SODIUM 40 MG TAB PO SCH (07:31)
[2016-12-28] MEDS: ASPIRIN EC 81 MG TAB PO SCH (07:42)
[2016-12-28] MEDS: ALLOPURINOL 100 MG TAB PO SCH (07:42)
--- NOTE | 2016-12-28 09:46 | GDS ---
[f rep st] DISCHARGE SUMMARY DISCHARGE DIAGNOSES: 1. Recurrent heart palpitations. 2. Chronic systolic heart failure. 3. Coronary artery disease, status post stenting in July 2016. 4. Gastroesophageal reflux disease. 5. Gastroesophageal reflux disease. HISTORY: For details, please see dictated history and physical dated December 26, 2016. In brief, the patient is a 66-year-old male, history of coronary artery disease, who underwent PCI a nd coronary artery stenting in July 2016, is noted to have chronic systolic heart failure with e jection fraction of 35%, who presents to the emergency department with recurrent heart palpitations. He was admitted to the hospital for further evaluation. HOSPITAL COURSE: Patient was admitted to the telemetry unit. There was no evidence of abnormal arr hythmias. He did have occasional premature ventricular contractions. I discussed this case with Dr Charbel Wheeler, his new dining car waiter/waitress. He recently had a repeat coronary angiogram in October 2016, w hich showed patent stents and nonobstructive disease. He also underwent an outpatient cardiac monit or, which also did not show any malignant arrhythmias. He is noted to have a history of PVCs and no nsustained ventricular tachycardia. He is continued on his beta-nicho. His symptoms seem improve d at this time, and the patient is safe for discharge home. I did discuss with him and his his history of anxiety, and he will need to follow up with his primary care physician to discuss gokul xiong management of this. DISPOSITION: Patient is discharged home in stable condition. FOLLOWUP: 1. Dr. Chang, primary care. 2. Dr. Jef Wheeler, cardiology. DISCHARGE MEDICATIONS: Please see [facility] for complete updated outpatient medication list. Eliana gomez will continue all outpatient medications as prescribed with no changes. /[id number]/MODL
--- NOTE | 2016-12-28 18:44 | PDCARPN ---
Cardiology Progress Note Chief Complaint: MR. Jacobs was admitted over the weekned with chest pain and palpitations. Troponin is negative x 2. LHC earlier this year demonstrated no flow limiting cad and patent stents. Telemetry demonstrates NSR with PVC's. Assessment/Plan: Assessment: 1. CAD 2. PvC's 3. Anxiety Plan: -Decrease Metoprolol succinate to half tablet daily -Recommend pt be seen by Dr Chang to discuss tx for anxiety -Follow up in our office in 2-3 weeks 12/28/16 18:42 Reviewed/Discussed With: family, hospitalist Objective: Intake/Output (24 Hrs) 12/27/16 12/28/16 12/29/16 05:59 05:59 05:59 Intake Total 650 Balance 650 Intake: Oral (ml) 650 Other: Intake Quantity Yes Sufficient Result Diagrams: 12/27/16 03:21 12/27/16 03:21 - Physical Exam Constitutional: WDWN Ears, Nose, Mouth, Throat: moist mucous membranes Neurologic: AAOx3, CN II-XII grossly intact Psychiatric: cooperative, interactive, anxious ICD10 Worksheet Patient Problems: Problems Problem Status Onset Acute chest pain Acute Pre-syncope Acute
== END 2016-12-28 11:44 | disposition home or self-care (01) | DRG 309 ==
LOC: F2W 23:10 → OBSVTOIN 12-27 16:29
PROVIDERS: ADMIT Internal Medicine; ATTEND Internal Medicine
DX: R00.2 Palpitations (principal); I50.22 Chronic systolic (congestive) heart failure; I25.10 Atherosclerotic heart disease of native coronary artery without angina pectoris; K21.9 Gastro-esophageal reflux disease without esophagitis; I11.0 Hypertensive heart disease with heart failure; Z87.891 Personal history of nicotine dependence; Z95.5 Presence of coronary angioplasty implant and graft
CPT/HCPCS: G0378

== ENCOUNTER → 2017-09-03 | Outpatient (CLI) | payer OTHER, MEDICARE | LOC: CIMAGING 10:52 | PROVIDERS: ATTEND Internal Medicine Gastroenterology | DX: K59.00 Constipation, unspecified (principal) | CPT/HCPCS: 74000-PO ==

== ENCOUNTER → 2018-01-19 | Outpatient (CLI) | payer OTHER, MEDICARE | LOC: BHFA 09:00 | PROVIDERS: ATTEND Internal Medicine Cardiovascular Disease | DX: R07.9 Chest pain, unspecified (principal); I25.10 Atherosclerotic heart disease of native coronary artery without angina pectoris | CPT/HCPCS: 78452; 93017; A9500 ==

== ENCOUNTER → 2018-01-24 | Outpatient (CLI) | payer OTHER, MEDICARE | LOC: BHCLAF 09:15 | PROVIDERS: ATTEND Internal Medicine Cardiovascular Disease | DX: I25.10 Atherosclerotic heart disease of native coronary artery without angina pectoris (principal); R07.9 Chest pain, unspecified; I42.9 Cardiomyopathy, unspecified | CPT/HCPCS: 93306-PO ==

== ENCOUNTER 2018-07-25 11:30 | Day surgery (SDC) | payer OTHER, MEDICARE ==
[2018-07-25] MEDS ORDERED: LR 1,000 ML IV ONE (12:11)
[2018-07-25] MEDS ORDERED: INDOMETHACIN 50 MG SUPP PR PRN (13:29)
--- NOTE | 2018-07-25 13:29 | PDGENHP ---
History & Physical Chief Complaint: panc cyst History of Present Illness: 68 year old male presents for evlauation of pancreatic cysts. Pertinent Past, Social, Family History: PSurghx: Appy, ccy. PMHx: gout, high lipids, HTN,CAD Relevant Physical Exam: HEENT: anicteric. CV: RRR +s1s2. lungs: CTAB. Abd: soft, nt, + bs Cardiorespiratory Assessment: ASA 3
[2018-07-25] MEDS ORDERED: NS 500 ML IV SCH (13:30)
--- NOTE | 2018-07-25 13:38 | PDANEPAE ---
ANE History of Present Illness EGD EUS ANE Past Medical History - Cardiovascular History Hx Hypertension: Yes Hx Arrhythmias: No Hx Chest Pain: No Hx Coronary Artery / Peripheral Vascular Disease: Yes Hx CHF / Valvular Disease: No Hx Palpitations: Yes Cardiovascular History Comment: STENT X2 07/2016. HYPERLIPIDEMIA. V TACH - Pulmonary History Hx COPD: No Hx Asthma/Reactive Airway Disease: No Hx Recent Upper Respiratory Infection: No Hx Oxygen in Use at Home: No Hx Sleep Apnea: Yes Sleep Apnea Screening Result - Last Documented: Positive Pulmonary History Comment: WAYNE USES C-PAP - Neurologic History Hx Cerebrovascular Accident: No Hx Seizures: No Hx Dementia: No Neurologic History Comment: OCCAS MIGRAINE H/As - Endocrine History Hx Diabetes: No Hypothyroid: No Hyperthyroid: No - Renal History Hx Renal Disorders: No Renal History Comment: TURP - Liver History Hx Hepatic Disorders: No Hepatic History Comment: HERBERT - Neurological & Psychiatric Hx Hx Neurological and Psychiatric Disorders: No Neurological / Psychiatric History Comment: ANXIETY - Cancer History Hx Cancer: No - Congenital Disorder History Hx Congenital Disorders: No - GI History GERD: no Hx Gastrointestinal Disorders: Yes Gastrointestinal History Comment: GERD. DIVERTICULOSIS. NARROW ESOPHAGUS. INTERNAL HEMORRHOID - Other Health History Other Health History: RECENT MRI SHOWED DARLINE PANCREATIC CYSTS. GOUT. ANEMIA 2016 - Chronic Pain History Chronic Pain: No - Surgical History Prior Surgeries: UMBILICAL HERNIA 03/2018. CARDIAC ANGIO W/STENTS X2. COLONOSCOPY. RTC R SHOULDER. CHOLECYSTECTOMY. APPENDECTOMY. L HAND. UMB HERNIA. TURP ANE Review of Systems Review of Systems: - Exercise capacity METS (RN): 5 METS ANE Patient History - Allergies Allergies/Adverse Reactions: amoxicillin trihydrate [From Augmentin] Allergy (Intermediate, Verified 11:16) GI LOOSE STOOLS cephalexin [Cephalexin] Allergy (Intermediate, Verified 01/13/18 11:16) GI LOOSE STOOLS clarithromycin [From Biaxin] Allergy (Intermediate, Verified 01/13/18 11:16) GI LOOSE STOOLS potassium clavulanate [From Augmentin] Allergy (Intermediate, Verified 01/13/18 11:16) GI LOOSE STOOLS Sulfa (Sulfonamide Antibiotics) Allergy (Intermediate, Verified 08/12/16 17:12) Hives lactose Allergy (Verified 08/12/16 17:12) - Home Medications Home medications: home medication list seen and reviewed Home Medications: Allopurinol [Allopurinol 100 MG (*)] 50 mg PO DAILY 01/12/14 [Last Taken 08:00] Aspirin EC [Aspirin EC 81 mg (*)] 81 mg PO DAILY 01/12/14 [Last Taken 07/17/18] Cyanocobalamin [Vitamin B12 (*)] 1,000 mcg PO DAILY 01/12/14 [Last Taken ] Pantoprazole Sodium [Protonix 40mg (*)] 40 mg PO DAILY 01/12/14 [Last Taken 07/31] Ramipril [Altace 5mg (*)] 5 mg PO HS 01/12/14 [Last Taken 07/24/18] Metoprolol Succinate Xr [Toprol Xl 25 mg (*)] 25 mg PO HS 10/21/16 [Last Taken 07/24/18] Rosuvastatin Calcium [Crestor] 10 mg PO HS 10/21/16 [Last Taken 07/24/18] Xanax PO PRN 01/13/18 [Last Taken 1 Week Ago ~07/18/18] - NPO status NPO Since - Liquids (Date): 07/25/18 NPO Since - Liquids (Time): 10:35 NPO Since - Solids (Date): 06/14/18 NPO Since - Solids (Time): 22:00 - Smoking Hx Smoking Status: Former smoker - Family Anes Hx Family Hx Anesthesia Complications: NEG ANE Labs/Vital Signs - Vital Signs Blood Pressure: 157/92 Heart Rate: 59 Respiratory Rate: 18 O2 Sat (%): 93 Height: 190.5 cm Weight: 92.986 kg ANE Physical Exam - Airway Neck exam: FROM Mallampati Score: Class 2 - Pulmonary Pulmonary: no respiratory distress, no rales or rhonchi - Cardiovascular Cardiovascular: regular rate and rhythym, no murmur, rub, or gallop - ASA Status ASA Status: III ANE Anesthesia Plan Anesthesia Plan: GA w LMA, GA with mask
[2018-07-25] MEDS ORDERED: PROPOFOL/EMULSION 500 MG/50 ML BOTTLE IV ONE (13:42)
[2018-07-25] MEDS ORDERED: LIDOCAINE 2% 5 ML SDV ONE (13:54)
[2018-07-25] MEDS ORDERED: fentaNYL 100 MCG/2 ML INJ IVP PRN (13:56)
[2018-07-25] MEDS ORDERED: NALOXONE HCL 0.4 MG/ML INJ IVP PRN (13:56)
[2018-07-25] MEDS ORDERED: levOFLOXACIN 500 MG/DEXTROSE/100 ML BAG IV ONE (14:10)
[2018-07-25] MEDS ORDERED: levOFLOXACIN 500 MG/DEXTROSE 100 ML IV ONE (15:00)
[2018-07-25 15:14] VITALS: BP 152/87
--- NOTE | 2018-07-25 15:43 | GIREPORT ---
Pending Sale To [facility] - Endoscopy Department Patient Name: Cleve Jacobs Procedure Date: 07/25/2018 1:32 PM Patient Type: Outpatient Attending MD/ ER Physician: Dano Menard MD Procedure: Upper EUS Indications: Pancreatic cyst on MRI Patient Profile: 68 year old male with a history of heartburn presents for evaluation of abnormal imaging. He had a recent MRI which revealed several pancreatic cysts. Providers: Dano Menard MD Medicines: Monitored Anesthesia Care, Levaquin 500mg IV x 1. Complications: No immediate complications. Estimated blood loss: Minimal. Description of Procedure: After obtaining informed consent, the endoscope was passed under direct vision. Throughout the procedure, the patient's blood pressure, pulse, and oxygen saturations were monitored continuously. The Endosonoscope was introduced through the mouth, and advanced to the second part of duoden um. The Endosonoscope was introduced through the mouth, and advanced to the second part of duodenum. The upper EUS was accomplished without difficu lty. The esophagus, stomach, and duodenum were visualized endosonographicall y. The patient tolerated the procedure well. Findings: Endoscopic Finding : The examined esophagus was normal. A small hiatal hernia was present. Patchy mildly erythematous mucosa was found in the entire examined stom ach. Biopsies were taken with a cold forceps for histology. A few small sessile polyps were found on the greater curvature of the stomach. Biopsies were taken with a cold forceps for histology. The examined duodenum was normal. Endosonographic Finding : Anechoic lesions suggestive of multiple cysts were identified in the pancreatic head. There were about 3-9mm. They were thin walled and had no obvious communication with the pancreatic duct. There was no associated mass. The largest cyst was 9mm but an intervening vessel was noted. Mulitple 3-6 mm cysts were seen in the body and tail of the pancreas. T he larges lesion measured 7 mm in maximal cross-sectional diameter. There was a single compartment thinly septated. The outer wall of the lesion was no t seen. Diagnostic needle aspiration for fluid was performed. Color Doppl er imaging was utilized prior to needle puncture to confirm a lack of significant vascular structures within the needle path. One pass was ma de with the 25 gauge needle using a transgastric approach. A stylet was us ed. The amount of fluid collected was 0.5 mL. Sample(s) were sent for CEA. Pancreatic parenchymal abnormalities were noted in the entire pancreas. These consisted of hyperechoic foci. There was no sign of significant endosonographic abnormality in the visualized portion of the liver. No masses were identified. No lymphadenopathy seen. There was no sign of significant endosonographic abnormality in the com mon bile duct. Estimated Blood Loss: Estimated blood loss was minimal. Post Op Diagnosis: - Normal esophagus. - Small hiatal hernia. - Erythematous mucosa in the stomach. Biopsied. - A few gastric polyps. Biopsied. - Normal examined duodenum. - Multiple cystic lesions were seen in the pancreatic head. - Mulitple cystic lesion was seen in the pancreatic body and tail. Fine needle aspiration for fluid performed of the largest lesion seen in the body of the pancreas.. - Pancreatic parenchymal abnormalities consisting of hyperechoic foci w ere noted in the entire pancreas. - There was no evidence of significant pathology in the visualized port ion of the liver. - Etiology? IPMN versus simple cyst versus other? Will await FNA result s. Recommendation: - Discharge patient to home (with escort). - Clear liquid diet. - Continue present medications. - Await cytology results and await path results. - Ciproflocaxin 500mg PO BID x 3 days. - Thank you for allowing me to participate in the care of your patient. Attending Participation: I personally performed the entire procedure. Dano Menard MD Dano Menard MD 07/25/2018 3:42:32 PM This report has been signed electronicallyDano Menard MD Number of Addenda: 0 Note Initiated On: 07/25/2018 1:32 PM [email or web address]
--- NOTE | 2018-07-25 16:02 | POSTANESTH ---
Post Anesthetic Evaluation Cardiovascular Status: Normal, Stable Respiratory Status: Normal, Stable Level of Consciousness/Mental Status: Can Participate in Eval Pain Control: Adequate, Prn Tx Ordered Nausea/Vomiting Control: Adequate, Prn Tx Ordered Complications Possibly Related to Anesthesia: None Noted
== END 2018-07-25 15:59 | disposition home or self-care (01) ==
LOC: FSGY 11:30
PROVIDERS: ATTEND Internal Medicine Gastroenterology
PROC: 0FBG8ZX Excision of Pancreas, Via Natural or Artificial Opening Endoscopic, Diagnostic (ICD-10-PCS; principal; 2018-07-25 13:15)
PROC: 0DB68ZX Excision of Stomach, Via Natural or Artificial Opening Endoscopic, Diagnostic (ICD-10-PCS; principal; 2018-07-25 13:15)
DX: K86.2 Cyst of pancreas (principal); K29.50 Unspecified chronic gastritis without bleeding; I10 Essential (primary) hypertension; I25.10 Atherosclerotic heart disease of native coronary artery without angina pectoris; M10.9 Gout, unspecified
CPT/HCPCS: J1956; J2704

== ENCOUNTER → 2018-07-29 | Outpatient (CLI) | payer OTHER, MEDICARE | LOC: BHCLAF 10:00 | PROVIDERS: ATTEND Internal Medicine Interventional Cardiology | DX: I25.10 Atherosclerotic heart disease of native coronary artery without angina pectoris (principal); I71.9 Aortic aneurysm of unspecified site, without rupture | CPT/HCPCS: 93306-PO ==